=== PATIENT | female | born 1940 | race Caucasian/White ===

== ENCOUNTER 2022-07-31 07:58 | Inpatient (IN) | payer MEDICARE, BC ==
[2022-07-31] MEDS ORDERED: Dexamethasone 10 MG/ML VIAL ONE (08:44)
[2022-07-31] MEDS ORDERED: Magnesium 2 GM/50 ML BAG (IN WATER) ONE (08:45)
[2022-07-31 08:58] LABS: #Monocytes 0.8 thou/uL (0.11-0.59); #Neutrophils 3.8 thou/uL (1.40-6.50); %Basophils 0.8 % (0.0-1.0); %Eosinophils 0.6 % (0.0-10.0); %Lymphocytes 17.9 % (21.0-51.0); %Monocytes 13.6 % (0.0-10.0); %Neutrophils 67.2 % (42.0-75.0); Hemoglobin 11.6 g/dL (12.0-16.0); Mean Corpuscular HGB CONC 32.5 g/dL (32.0-36.0); Mean Corpuscular Hemoglobin 30.2 pg (27.0-31.0); Mean Corpuscular Volume 92.7 fl (78.0-98.0); Mean Platelet Volume 7.2 fL (7.4-10.4); Platelet Count 362 10x3/uL (130-400); Red Blood Cell (RBC) Count 3.85 mill/uL (4.20-5.40); White Blood Cell (WBC) Count 5.7 10x3/uL (4.8-10.8)
[2022-07-31 09:33] LABS: ALT (SGPT) 13 U/L (8-55); AST (SGOT) 19 U/L (5-34); Albumin 3.6 g/dL (3.4-4.8); Alkaline Phosphatase 101 U/L (40-110); Anion Gap 15 mmol/L (10-20); BUN (Urea Nitrogen) 14 mg/dL (9.8-20.1); Bilirubin, Total 0.2 mg/dL (0.2-1.2); Calc. Creatinine Clearance 0 mL/min (70-130); Calcium 9.1 mg/dL (7.8-10.44); Carbon Dioxide 23 mmol/L (23-31); Chloride 94 mmol/L (98-107); Estimated GFR 79; Globulin 2.9 g/dL (2.4-3.5); Glucose 83 mg/dL (83-110); Potassium 3.7 mmol/L (3.5-5.1); Protein, Total 6.5 g/dL (5.8-8.1); Sodium 128 mmol/L (136-145)
[2022-07-31] MEDS ORDERED: HumaLOG 300 UNITS/3 ML VIAL SC PRN (12:43)
[2022-07-31] MEDS ORDERED: Dextrose 5% in Water 1,000 ML IV PRN (12:43)
[2022-07-31] MEDS ORDERED: Dextrose 50% Abboject 50 ML SYRINGE SLOW IVP PRN (12:43)
[2022-07-31] MEDS ORDERED: Amlodipine 10 MG TAB PO SCH (12:45)
[2022-07-31 15:11] VITALS: BMI 39.6
[2022-07-31] MEDS ORDERED: Sodium Chloride 0.65% Nasal 44 ML BOT EA NARE PRN (21:33)
[2022-07-31] MEDS: Acetaminophen 325 MG TAB PO PRN (22:13)
[2022-07-31] MEDS: Ondansetron PF 4 MG/2 ML Vial IVP PRN (23:06)
[2022-08-01] MEDS ORDERED: Chloraseptic Spray 180 ml Bottle PO PRN (00:25)
[2022-08-01] MEDS ORDERED: Melatonin 3 MG TAB PO PRN (01:42)
[2022-08-01] MEDS: Acetaminophen 325 MG TAB PO PRN ×3 (02:17→15:15)
[2022-08-01 06:57] LABS: #Lymphocytes 1.1 thou/uL (1.20-3.40); #Monocytes 1.1 thou/uL (0.11-0.59); #Neutrophils 8.7 thou/uL (1.40-6.50); %Basophils 0.2 % (0.0-1.0); %Eosinophils 0.2 % (0.0-10.0); %Lymphocytes 10.3 % (21.0-51.0); %Monocytes 10.3 % (0.0-10.0); Hemoglobin 11.5 g/dL (12.0-16.0); Mean Corpuscular Hemoglobin 30.3 pg (27.0-31.0); Mean Corpuscular Volume 94.8 fl (78.0-98.0); Mean Platelet Volume 7.1 fL (7.4-10.4); Platelet Count 386 10x3/uL (130-400); RBC Distribution Width 14.2 % (11.5-14.5); Red Blood Cell (RBC) Count 3.78 mill/uL (4.20-5.40); White Blood Cell (WBC) Count 11.1 10x3/uL (4.8-10.8)
[2022-08-01 07:16] LABS: Anion Gap 14 mmol/L (10-20); BUN (Urea Nitrogen) 18 mg/dL (9.8-20.1); Calc. Creatinine Clearance 85 mL/min (70-130); Calcium 9.3 mg/dL (7.8-10.44); Carbon Dioxide 23 mmol/L (23-31); Chloride 96 mmol/L (98-107); Estimated GFR 81; Glucose 113 mg/dL (83-110); Potassium 3.7 mmol/L (3.5-5.1); Sodium 129 mmol/L (136-145)
[2022-08-01] MEDS ORDERED: Dexamethasone 10 MG in Sodium Chloride 0.9% 50 ML IVPB SCH (09:00)
[2022-08-01] MEDS: Ascorbic Acid 500 mg Chewable Tablet PO SCH ×2 (10:17→20:05)
[2022-08-01] MEDS: Amlodipine 10 MG TAB PO SCH (10:18)
[2022-08-01] MEDS: Floranex 1 GM Packet PO SCH (10:18)
[2022-08-01] MEDS: Potassium Chloride 10 MEQ TAB PO SCH (10:18)
[2022-08-01] MEDS: Dexamethasone 10 MG/ML VIAL SLOW IVP SCH (10:18)
[2022-08-01] MEDS: Furosemide 20 MG TAB PO SCH (10:19)
[2022-08-01] MEDS: Ondansetron PF 4 MG/2 ML Vial IVP PRN ×2 (10:24→20:05)
[2022-08-01] MEDS: DorzolamidE/Timolol 2%/0.5% Ophth Soln 10 ml Bottle EA EYE SCH ×2 (10:27→20:13)
[2022-08-01] MEDS ORDERED: Pharmacy to Dose REMDESIVIR IVPB PRN (11:35)
[2022-08-01] MEDS ORDERED: REMDESIVIR 200 MG in Sodium Chloride 0.9% 250 ML 210 ML IV SCH (12:00)
[2022-08-01] MEDS ORDERED: Calcium Carbonate 500 MG ChewTAB PO PRN (19:54)
[2022-08-01] MEDS: Latanoprost 0.005% Ophth Soln 2.5 ml Bottle EA EYE SCH (20:12)
[2022-08-02] MEDS: Furosemide 20 MG TAB PO SCH (08:53)
[2022-08-02] MEDS: Ascorbic Acid 500 mg Chewable Tablet PO SCH ×2 (08:53→21:56)
[2022-08-02] MEDS: Acetaminophen 325 MG TAB PO PRN ×2 (08:53→21:56)
[2022-08-02] MEDS: REMDESIVIR 100 MG in Sodium Chloride 0.9% 250 ML 230 ML IV SCH (08:53)
[2022-08-02] MEDS: Floranex 1 GM Packet PO SCH (08:53)
[2022-08-02] MEDS: Potassium Chloride 10 MEQ TAB PO SCH (08:54)
[2022-08-02] MEDS: DorzolamidE/Timolol 2%/0.5% Ophth Soln 10 ml Bottle EA EYE SCH ×2 (08:54→21:56)
[2022-08-02] MEDS: Amlodipine 10 MG TAB PO SCH (08:54)
[2022-08-02] MEDS: Dexamethasone 10 MG/ML VIAL SLOW IVP SCH (08:54)
[2022-08-02] MEDS: Ondansetron PF 4 MG/2 ML Vial IVP PRN (08:55)
[2022-08-02] MEDS: Latanoprost 0.005% Ophth Soln 2.5 ml Bottle EA EYE SCH (21:56)
[2022-08-03] MEDS: Acetaminophen 325 MG TAB PO PRN ×4 (05:30→21:56)
[2022-08-03 07:01] LABS: #Lymphocytes 0.9 thou/uL (1.20-3.40); #Monocytes 0.8 thou/uL (0.11-0.59); #Neutrophils 7.1 thou/uL (1.40-6.50); %Basophils 0.1 % (0.0-1.0); %Eosinophils 0.1 % (0.0-10.0); %Lymphocytes 10.6 % (21.0-51.0); %Monocytes 9.4 % (0.0-10.0); %Neutrophils 79.9 % (42.0-75.0); Hemoglobin 10.7 g/dL (12.0-16.0); Mean Corpuscular HGB CONC 33.2 g/dL (32.0-36.0); Mean Corpuscular Hemoglobin 31.4 pg (27.0-31.0); Mean Corpuscular Volume 94.6 fl (78.0-98.0); Platelet Count 352 10x3/uL (130-400); RBC Distribution Width 14.7 % (11.5-14.5); Red Blood Cell (RBC) Count 3.41 mill/uL (4.20-5.40); White Blood Cell (WBC) Count 8.9 10x3/uL (4.8-10.8)
[2022-08-03 07:18] LABS: ALT (SGPT) 13 U/L (8-55); AST (SGOT) 17 U/L (5-34); Albumin 3.5 g/dL (3.4-4.8); Alkaline Phosphatase 87 U/L (40-110); Anion Gap 11 mmol/L (10-20); BUN (Urea Nitrogen) 24 mg/dL (9.8-20.1); Bilirubin, Total 0.3 mg/dL (0.2-1.2); Calc. Creatinine Clearance 76 mL/min (70-130); Calcium 9.2 mg/dL (7.8-10.44); Carbon Dioxide 27 mmol/L (23-31); Chloride 96 mmol/L (98-107); Estimated GFR 70; Globulin 2.5 g/dL (2.4-3.5); Glucose 105 mg/dL (83-110); Potassium 3.9 mmol/L (3.5-5.1); Sodium 130 mmol/L (136-145)
[2022-08-03] MEDS: Potassium Chloride 10 MEQ TAB PO SCH (09:24)
[2022-08-03] MEDS: Dexamethasone 10 MG/ML VIAL SLOW IVP SCH (09:24)
[2022-08-03] MEDS: Furosemide 20 MG TAB PO SCH (09:24)
[2022-08-03] MEDS: Ascorbic Acid 500 mg Chewable Tablet PO SCH ×2 (09:24→21:58)
[2022-08-03] MEDS: Amlodipine 10 MG TAB PO SCH (09:24)
[2022-08-03] MEDS: REMDESIVIR 100 MG in Sodium Chloride 0.9% 250 ML 230 ML IV SCH (09:25)
[2022-08-03] MEDS: DorzolamidE/Timolol 2%/0.5% Ophth Soln 10 ml Bottle EA EYE SCH ×2 (09:25→21:56)
[2022-08-03] MEDS: Floranex 1 GM Packet PO SCH (09:25)
[2022-08-03] MEDS: Ondansetron PF 4 MG/2 ML Vial IVP PRN (16:59)
[2022-08-03] MEDS: Latanoprost 0.005% Ophth Soln 2.5 ml Bottle EA EYE SCH (21:56)
[2022-08-04 06:23] LABS: #Neutrophils 6.3 thou/uL (1.40-6.50); %Basophils 0.2 % (0.0-1.0); %Eosinophils 0.3 % (0.0-10.0); %Lymphocytes 11.9 % (21.0-51.0); %Monocytes 11.6 % (0.0-10.0); %Neutrophils 75.9 % (42.0-75.0); Hemoglobin 10.8 g/dL (12.0-16.0); Mean Corpuscular HGB CONC 32.3 g/dL (32.0-36.0); Mean Corpuscular Hemoglobin 30.5 pg (27.0-31.0); Mean Corpuscular Volume 94.4 fl (78.0-98.0); Mean Platelet Volume 7.1 fL (7.4-10.4); Platelet Count 373 10x3/uL (130-400); RBC Distribution Width 14.7 % (11.5-14.5); Red Blood Cell (RBC) Count 3.52 mill/uL (4.20-5.40); White Blood Cell (WBC) Count 8.4 10x3/uL (4.8-10.8)
[2022-08-04 06:47] LABS: ALT (SGPT) 42 U/L (8-55); AST (SGOT) 26 U/L (5-34); Albumin 3.6 g/dL (3.4-4.8); Alkaline Phosphatase 88 U/L (40-110); Anion Gap 11 mmol/L (10-20); BUN (Urea Nitrogen) 24 mg/dL (9.8-20.1); Bilirubin, Total 0.4 mg/dL (0.2-1.2); Calc. Creatinine Clearance 78 mL/min (70-130); Carbon Dioxide 25 mmol/L (23-31); Chloride 97 mmol/L (98-107); Estimated GFR 72; Globulin 2.4 g/dL (2.4-3.5); Glucose 108 mg/dL (83-110); Sodium 129 mmol/L (136-145)
[2022-08-04] MEDS: Furosemide 20 MG TAB PO SCH (09:16)
[2022-08-04] MEDS: Floranex 1 GM Packet PO SCH (09:16)
[2022-08-04] MEDS: Potassium Chloride 10 MEQ TAB PO SCH (09:16)
[2022-08-04] MEDS: Ascorbic Acid 500 mg Chewable Tablet PO SCH ×2 (09:16→21:14)
[2022-08-04] MEDS: Amlodipine 10 MG TAB PO SCH (09:16)
[2022-08-04] MEDS: REMDESIVIR 100 MG in Sodium Chloride 0.9% 250 ML 230 ML IV SCH (09:16)
[2022-08-04] MEDS: DorzolamidE/Timolol 2%/0.5% Ophth Soln 10 ml Bottle EA EYE SCH ×2 (09:21→21:14)
[2022-08-04] MEDS: Dexamethasone 10 MG/ML VIAL SLOW IVP SCH (09:21)
[2022-08-04] MEDS: Acetaminophen 325 MG TAB PO PRN ×2 (17:03→22:58)
[2022-08-04] MEDS: Latanoprost 0.005% Ophth Soln 2.5 ml Bottle EA EYE SCH (21:14)
[2022-08-05 06:26] LABS: #Neutrophils 7.9 thou/uL (1.40-6.50); %Basophils 0.1 % (0.0-1.0); %Monocytes 9.8 % (0.0-10.0); Hemoglobin 10.8 g/dL (12.0-16.0); Mean Corpuscular HGB CONC 32.6 g/dL (32.0-36.0); Mean Corpuscular Hemoglobin 30.6 pg (27.0-31.0); Mean Corpuscular Volume 93.8 fl (78.0-98.0); Mean Platelet Volume 7.4 fL (7.4-10.4); Platelet Count 362 10x3/uL (130-400); RBC Distribution Width 14.6 % (11.5-14.5); Red Blood Cell (RBC) Count 3.53 mill/uL (4.20-5.40); White Blood Cell (WBC) Count 9.9 10x3/uL (4.8-10.8)
[2022-08-05 07:32] LABS: ALT (SGPT) 38 U/L (8-55); AST (SGOT) 19 U/L (5-34); Albumin 3.5 g/dL (3.4-4.8); Alkaline Phosphatase 93 U/L (40-110); BUN (Urea Nitrogen) 25 mg/dL (9.8-20.1); Bilirubin, Total 0.4 mg/dL (0.2-1.2); Calc. Creatinine Clearance 85 mL/min (70-130); Calcium 9.2 mg/dL (7.8-10.44); Carbon Dioxide 24 mmol/L (23-31); Chloride 98 mmol/L (98-107); Estimated GFR 81; Globulin 2.4 g/dL (2.4-3.5); Glucose 109 mg/dL (83-110); Potassium 3.9 mmol/L (3.5-5.1); Protein, Total 5.9 g/dL (5.8-8.1); Sodium 131 mmol/L (136-145)
[2022-08-05 08:42] VITALS: BP 158/90; TEMP 97.4
[2022-08-05] MEDS: Floranex 1 GM Packet PO SCH (08:49)
[2022-08-05] MEDS: Amlodipine 10 MG TAB PO SCH (08:51)
[2022-08-05] MEDS: Potassium Chloride 10 MEQ TAB PO SCH (08:51)
[2022-08-05] MEDS: Dexamethasone 10 MG/ML VIAL SLOW IVP SCH (08:51)
[2022-08-05] MEDS: Furosemide 20 MG TAB PO SCH (08:51)
[2022-08-05] MEDS: DorzolamidE/Timolol 2%/0.5% Ophth Soln 10 ml Bottle EA EYE SCH (08:51)
[2022-08-05] MEDS: Ascorbic Acid 500 mg Chewable Tablet PO SCH (08:51)
[2022-08-05] MEDS: REMDESIVIR 100 MG in Sodium Chloride 0.9% 250 ML 230 ML IV SCH (09:49)
[2022-08-05 13:13] LABS: Anion Gap 13 mmol/L (10-20)
== END 2022-08-05 14:25 | disposition home health service (06) | DRG 177 ==
LOC: ERS 07:58 → ERHOLD 10:49 → OBSVTOIN 13:54 → T4-A 14:24
PROVIDERS: ADMIT Internal Medicine; ATTEND Internal Medicine
PROC: XW033E5 Introduction of Remdesivir Anti-infective into Peripheral Vein, Percutaneous Approach, New Technology Group 5 (ICD-10-PCS; principal; 2022-08-01)
PROC: 8E0ZXY6 Isolation (ICD-10-PCS; 2022-08-01)
DX: U07.1 COVID-19 (principal); J96.01 Acute respiratory failure with hypoxia; E87.1 Hypo-osmolality and hyponatremia; E11.9 Type 2 diabetes mellitus without complications; E78.5 Hyperlipidemia, unspecified; I10 Essential (primary) hypertension; Z86.73 Personal history of transient ischemic attack (TIA), and cerebral infarction without residual deficits; Z90.49 Acquired absence of other specified parts of digestive tract; Z79.899 Other long term (current) drug therapy
CPT/HCPCS: 36415; 36416; 71045; 80048; 80053; 83880; 84484; 85025; 85379; 93005; 96365; 96375; J0248; J1100; J1650; J1815; J2405; J3475; J7050; U0003; U0005

== ENCOUNTER 2022-10-05 15:17 | Emergency (ER) | payer MEDICARE, BC ==
[2022-10-05 16:01] LABS: Hemoglobin 12.2 g/dL (12.0-16.0); Mean Corpuscular HGB CONC 32.2 g/dL (32.0-36.0); Mean Corpuscular Hemoglobin 31.2 pg (27.0-31.0); Mean Corpuscular Volume 96.9 fl (78.0-98.0); Mean Platelet Volume 8.3 fL (7.4-10.4); Platelet Count 282 10x3/uL (130-400); RBC Distribution Width 13.3 % (11.5-14.5); Red Blood Cell (RBC) Count 3.92 mill/uL (4.20-5.40); White Blood Cell (WBC) Count 5.1 10x3/uL (4.8-10.8)
[2022-10-05 16:27] LABS: ALT (SGPT) 11 U/L (8-55); AST (SGOT) 17 U/L (5-34); Alkaline Phosphatase 88 U/L (40-110); Anion Gap 15 mmol/L (10-20); BUN (Urea Nitrogen) 16 mg/dL (9.8-20.1); Bilirubin, Total 0.2 mg/dL (0.2-1.2); Calc. Creatinine Clearance 0 mL/min (70-130); Calcium 10.1 mg/dL (7.8-10.44); Carbon Dioxide 21 mmol/L (23-31); Chloride 102 mmol/L (98-107); Estimated GFR 48; Glucose 93 mg/dL (83-110); Potassium 3.4 mmol/L (3.5-5.1); Sodium 135 mmol/L (136-145)
[2022-10-05 16:37] LABS: Band 3 % (5-11); Eosinophils 3 % (0-10); Lymphocytes 15 % (21-51); MDiff Complete? YES; Monocytes 13 % (0-10); Neutrophil 65 % (42-75); Platelet Morphology Comment Appears Adequate; RBC Morphology Normal
== END 2022-10-05 17:07 | disposition home or self-care (01) ==
LOC: ERS 15:17
DX: T36.8X1A Poisoning by other systemic antibiotics, accidental (unintentional), initial encounter (principal); E11.9 Type 2 diabetes mellitus without complications; E78.5 Hyperlipidemia, unspecified; I10 Essential (primary) hypertension
CPT/HCPCS: 36415; 80053; 85025; 99284

== ENCOUNTER 2023-02-01 10:41 | Observation (INO) | payer MEDICARE, BC ==
[2023-02-01] MEDS ORDERED: Ondansetron PF 4 MG/2 ML Vial ONE (11:21)
[2023-02-01 11:55] LABS: #Monocytes 0.9 thou/uL (0.11-0.59); #Neutrophils 5.5 thou/uL (1.40-6.50); %Basophils 0.4 % (0.0-1.0); %Eosinophils 0.6 % (0.0-10.0); %Lymphocytes 6.5 % (21.0-51.0); %Monocytes 12.3 % (0.0-10.0); %Neutrophils 79.8 % (42.0-75.0); Hematocrit 38.6 % (36.0-47.0); Hemoglobin 12.3 g/dL (12.0-16.0); Mean Corpuscular HGB CONC 31.9 g/dL (32.0-36.0); Mean Corpuscular Hemoglobin 31.5 pg (27.0-31.0); Mean Platelet Volume 10.7 fL (7.4-10.4); Platelet Count 191 10x3/uL (130-400); RBC Distribution Width 15.9 % (11.5-14.5); White Blood Cell (WBC) Count 6.9 10x3/uL (4.8-10.8)
[2023-02-01 12:53] LABS: SARS-CoV-2 NAA Rapid Test DETECTED (NotDetected)
[2023-02-01 13:24] LABS: Troponin I 0.011 ng/mL (< 0.028)
[2023-02-01 13:45] LABS: Calcium 9.5 mg/dL (7.8-10.44); Chloride 95 mmol/L (98-107); Potassium 4.6 mmol/L (3.5-5.1); Sodium 123 mmol/L (136-145)
[2023-02-01 13:46] LABS: Globulin 3.9 g/dL (2.4-3.5); Glucose 90 mg/dL (83-110); Protein, Total 7.9 g/dL (5.8-8.1)
[2023-02-01 13:47] LABS: Anion Gap 16 mmol/L (10-20); Carbon Dioxide 17 mmol/L (23-31)
[2023-02-01 13:48] LABS: Bilirubin, Total 0.2 mg/dL (0.2-1.2)
[2023-02-01 13:49] LABS: Alkaline Phosphatase 115 U/L (40-110); Calc. Creatinine Clearance 0 mL/min (70-130); Estimated GFR 82
[2023-02-01 13:50] LABS: BUN (Urea Nitrogen) 7 mg/dL (9.8-20.1)
[2023-02-01 13:51] LABS: AST (SGOT) 38 U/L (5-34)
[2023-02-01 13:52] LABS: ALT (SGPT) 18 U/L (8-55); Lipase 17 U/L (8-78)
[2023-02-01] MEDS ORDERED: Benzonatate 100 MG CAP PO PRN (15:08)
[2023-02-01] MEDS ORDERED: Albuterol 200 PUFF (6.7GM INHALER) INH PRN (15:08)
[2023-02-01] MEDS ORDERED: Acetaminophen 650 MG Suppository PR PRN (15:08)
[2023-02-01] MEDS ORDERED: Acetaminophen 325 MG TAB PO PRN (15:08)
[2023-02-01] MEDS ORDERED: HumaLOG 300 UNITS/3 ML VIAL SC PRN (15:13)
[2023-02-01] MEDS ORDERED: Glucagon 1 MG/ML KIT IM PRN (15:13)
[2023-02-01] MEDS ORDERED: Dextrose 5% in Water 1,000 ML IV PRN (15:13)
[2023-02-01] MEDS ORDERED: Dextrose 50% Abboject 50 ML SYRINGE SLOW IVP PRN (15:13)
[2023-02-01] MEDS ORDERED: Loperamide HCl 2 MG CAP PO PRN (15:14)
[2023-02-01] MEDS ORDERED: Ondansetron PF 4 MG/2 ML Vial IVP PRN (15:14)
[2023-02-01] MEDS ORDERED: Guaifenesin DM 100-10/5 ML UDCUP PO PRN (15:14)
[2023-02-01 15:34] LABS: Magnesium 1.9 mg/dL (1.6-2.6)
[2023-02-01] MEDS ORDERED: Dexamethasone 4 MG TAB PO SCH (15:45)
[2023-02-01] MEDS ORDERED: Loratadine 10 MG TAB PO PRN (15:47)
[2023-02-01] MEDS: Lactated Ringer's 1,000 ML IV SCH (16:34)
[2023-02-01 17:35] LABS: Legionella Urinary Ag Negative (Negative); Strep pneumo Urine Ag NEGATIVE (NEGATIVE); Troponin I Less than 0.010 ng/mL (< 0.028)
[2023-02-01] MEDS: DorzolamidE/Timolol 2%/0.5% Ophth Soln 10 ml Bottle EA EYE SCH (20:53)
[2023-02-01] MEDS ORDERED: Latanoprost 0.005% Ophth Soln 2.5 ml Bottle EA EYE SCH (21:00)
[2023-02-02] MEDS: Lactated Ringer's 1,000 ML IV SCH ×2 (01:51→13:40)
[2023-02-02 06:53] LABS: Hemoglobin A1c 5.4 % (4.0-6.0)
[2023-02-02 07:02] LABS: ALT (SGPT) 13 U/L (8-55); AST (SGOT) 15 U/L (5-34); Albumin 3.7 g/dL (3.4-4.8); Alkaline Phosphatase 101 U/L (40-110); Anion Gap 13 mmol/L (10-20); BUN (Urea Nitrogen) 8 mg/dL (9.8-20.1); Bilirubin, Total 0.2 mg/dL (0.2-1.2); Calc. Creatinine Clearance 0 mL/min (70-130); Calcium 9.3 mg/dL (7.8-10.44); Carbon Dioxide 21 mmol/L (23-31); Chloride 99 mmol/L (98-107); Estimated GFR 83; Globulin 2.9 g/dL (2.4-3.5); Glucose 130 mg/dL (83-110); Potassium 3.9 mmol/L (3.5-5.1); Protein, Total 6.6 g/dL (5.8-8.1); Sodium 129 mmol/L (136-145)
[2023-02-02 07:08] LABS: Lactic Acid 0.7 mmol/L (0.5-2.2)
[2023-02-02] MEDS ORDERED: Dexamethasone 4 MG TAB PO SCH (08:00)
[2023-02-02] MEDS ORDERED: Multivit, Therapeutic 1 TAB PO SCH (09:00)
[2023-02-02] MEDS ORDERED: Floranex 1 GM Packet PO SCH (09:00)
[2023-02-02] MEDS ORDERED: Amlodipine 10 MG TAB PO SCH (09:00)
[2023-02-02] MEDS ORDERED: Cholecalciferol 1,000 UNITS (25 MCG) TAB PO SCH (09:00)
[2023-02-02] MEDS: DorzolamidE/Timolol 2%/0.5% Ophth Soln 10 ml Bottle EA EYE SCH (09:42)
[2023-02-02 13:12] VITALS: BP 135/78; TEMP 98.5
[2023-02-03] MEDS ORDERED: Semaglutide [Rybelsus] 3 MG Tab PO SCH (09:00)
[2023-02-03] MEDS ORDERED: Non-Formulary Item 1 EACH (Semaglutide [Rybelsus] 3 MG Tablet) PO SCH (09:00)
[2023-02-03] MEDS ORDERED: Potassium Chloride 10 MEQ TAB PO SCH (09:00)
== END 2023-02-02 16:11 | disposition home or self-care (01) ==
LOC: ERS 10:41 → T4-B 14:41
PROVIDERS: ADMIT Internal Medicine Geriatric Medicine; ATTEND Internal Medicine Geriatric Medicine
DX: U07.1 COVID-19 (principal); E87.1 Hypo-osmolality and hyponatremia; E11.9 Type 2 diabetes mellitus without complications; I10 Essential (primary) hypertension; R07.9 Chest pain, unspecified; E87.21 Acute metabolic acidosis; E78.5 Hyperlipidemia, unspecified; Z79.899 Other long term (current) drug therapy; Z88.1 Allergy status to other antibiotic agents; Z91.048 Other nonmedicinal substance allergy status; Z86.73 Personal history of transient ischemic attack (TIA), and cerebral infarction without residual deficits
CPT/HCPCS: 0240U; 71045; 80053 ×2; 82728; 82962 ×2; 83036; 83605 ×2; 83615; 83690; 83735; 84145; 84484 ×2; 85025; 85379 ×2; 86140; 87449; 87899; 93005; 96361; 96374; 97535; 99285; 36415; 36416; J1650; J2405; J7120; J8540

== ENCOUNTER 2025-02-25 10:45 | Inpatient (IN) | payer MEDICARE, BC ==
[2025-02-25 14:15] LABS: Bacteria/HPF 1+ HPF (None Seen); CAUTI Indications for Culture < 2yrs of age; RBC/HPF 0-3 HPF (0-3)
[2025-02-25 14:16] LABS: Urine Culture Reflex Yes Yes
[2025-02-25] MEDS ORDERED: cefTRIAXone (ROCEPHIN) 1 GM VIAL ONE (14:38)
[2025-02-25 15:18] LABS: #Basophils 0.05 10x3/uL (0.0-0.2); #Eosinophils 0.12 10x3/uL (0.0-0.7); #Monocytes 0.54 10x3/uL (0.11-0.59); #Neutrophils 5.65 10x3/uL (1.40-6.50); %Basophils 0.7 % (0.0-1.0); %Eosinophils 1.6 % (0.0-10.0); %Lymphocytes 13.0 % (21.0-51.0); %Monocytes 7.4 % (0.0-10.0); %Neutrophils 77.0 % (42.0-75.0); Hematocrit 49.4 % (36.0-47.0); Hemoglobin 15.7 g/dL (12.0-16.0); Mean Corpuscular Hemoglobin 28.0 pg (27.0-31.0); Mean Corpuscular Volume 88.2 fL (78.0-98.0); Platelet Count 305 10x3/uL (130-400); Red Blood Cell (RBC) Count 5.60 mill/uL (4.20-5.40); White Blood Cell (WBC) Count 7.33 10x3/uL (4.8-10.8)
[2025-02-25 17:20] VITALS: BMI 33.0
[2025-02-25] MEDS ORDERED: Melatonin 3 MG TAB PO PRN (18:50)
[2025-02-25] MEDS ORDERED: Senokot S 8.6-50 MG TAB PO PRN (18:50)
[2025-02-25] MEDS ORDERED: Acetaminophen 325 MG TAB PO PRN (18:50)
[2025-02-25] MEDS ORDERED: Ondansetron PF 4 MG/2 ML Vial IVP PRN (18:50)
[2025-02-25 19:13] LABS: ALT (SGPT) 10 U/L (Less than 34); AST (SGOT) 20 U/L (11-34); Albumin 3.7 g/dL (3.1-4.5); Alkaline Phosphatase 118 U/L (40-110); Anion Gap 17 mmol/L (10-20); BUN (Urea Nitrogen) 7 mg/dL (9.8-20.1); Bilirubin, Total 0.3 mg/dL (0.3-1.2); Calc. Creatinine Clearance 80 mL/min (70-130); Calcium 9.6 mg/dL (7.8-10.44); Carbon Dioxide 19 mmol/L (23-31); Chloride 106 mmol/L (98-107); Globulin 3.8 g/dL (2.4-3.5); Glucose 206 mg/dL (83-110); Potassium 3.4 mmol/L (3.5-5.1); Sodium 139 mmol/L (136-145)
[2025-02-25] MEDS ORDERED: Glucagon 1 MG/ML KIT IM PRN (20:38)
[2025-02-25] MEDS ORDERED: Dextrose 50% Abboject 50 ML SYRINGE SLOW IVP PRN (20:38)
[2025-02-25] MEDS: DorzolamidE/Timolol 2%/0.5% Ophth Soln 10 ml Bottle EA EYE SCH (20:39)
[2025-02-25] MEDS: Azithromycin 500 MG in Sodium Chloride 0.9% 250 ML 250 ML IVPB SCH (20:39)
[2025-02-25] MEDS: Ezetimibe 10 MG TAB PO SCH (20:40)
[2025-02-25] MEDS: Famotidine 20 MG TAB PO SCH (20:40)
[2025-02-25 20:53] LABS: Influenza A by NAA Not Detected (NotDetected); Influenza B by NAA Not Detected (NotDetected); RSV by NAA Not Detected (NotDetected); SARS-CoV-2 NAA Rapid Test Not Detected (NotDetected)
[2025-02-25] MEDS: diphenhydrAMINE 25 MG CAP PO SCH (22:22)
[2025-02-26 06:22] LABS: #Basophils 0.04 10x3/uL (0.0-0.2); #Eosinophils 0.03 10x3/uL (0.0-0.7); #Monocytes 0.44 10x3/uL (0.11-0.59); #Neutrophils 8.36 10x3/uL (1.40-6.50); %Basophils 0.4 % (0.0-1.0); %Eosinophils 0.3 % (0.0-10.0); %Lymphocytes 7.0 % (21.0-51.0); %Monocytes 4.6 % (0.0-10.0); %Neutrophils 87.2 % (42.0-75.0); Hematocrit 48.8 % (36.0-47.0); Hemoglobin 16.2 g/dL (12.0-16.0); Mean Corpuscular Hemoglobin 28.5 pg (27.0-31.0); Mean Corpuscular Volume 85.9 fL (78.0-98.0); Platelet Count 303 10x3/uL (130-400); Red Blood Cell (RBC) Count 5.68 mill/uL (4.20-5.40); White Blood Cell (WBC) Count 9.59 10x3/uL (4.8-10.8)
[2025-02-26 06:31] LABS: Anion Gap 15 mmol/L (10-20); BUN (Urea Nitrogen) 7 mg/dL (9.8-20.1); Calc. Creatinine Clearance 82 mL/min (70-130); Calcium 9.8 mg/dL (7.8-10.44); Carbon Dioxide 23 mmol/L (23-31); Chloride 104 mmol/L (98-107); Glucose 124 mg/dL (83-110); Potassium 4.3 mmol/L (3.5-5.1); Sodium 138 mmol/L (136-145)
[2025-02-26] MEDS: Ferrous Sulfate 325 MG TAB PO SCH (08:27)
[2025-02-26] MEDS ORDERED: Non-Formulary Item 1 EACH (Ferrous Sulfate [Ferosul] 325 MG Tablet) PO SCH (09:00)
[2025-02-26] MEDS: Multivit, Therapeutic 1 TAB PO SCH (09:01)
[2025-02-26] MEDS: Cholecalciferol 1,000 UNITS (25 MCG) TAB PO SCH (09:01)
[2025-02-26] MEDS: Magnesium Oxide 400 MG TAB PO SCH (09:02)
[2025-02-26] MEDS: Furosemide 20 MG TAB PO SCH (09:02)
[2025-02-26] MEDS: cefTRIAXone\\ROCEPHIN 1 GM in Sodium Chloride 0.9% 100 ML IVPB SCH ×2 (14:21→20:16)
[2025-02-26] MEDS: Azithromycin 250 MG TAB PO SCH (20:18)
[2025-02-27 06:02] LABS: #Basophils 0.06 10x3/uL (0.0-0.2); #Eosinophils 0.26 10x3/uL (0.0-0.7); #Monocytes 0.86 10x3/uL (0.11-0.59); #Neutrophils 5.43 10x3/uL (1.40-6.50); %Basophils 0.7 % (0.0-1.0); %Eosinophils 3.2 % (0.0-10.0); %Lymphocytes 17.4 % (21.0-51.0); %Monocytes 10.7 % (0.0-10.0); %Neutrophils 67.6 % (42.0-75.0); Hematocrit 44.4 % (36.0-47.0); Hemoglobin 14.3 g/dL (12.0-16.0); Mean Corpuscular Hemoglobin 28.1 pg (27.0-31.0); Mean Corpuscular Volume 87.4 fL (78.0-98.0); Platelet Count 318 10x3/uL (130-400); Red Blood Cell (RBC) Count 5.08 mill/uL (4.20-5.40); White Blood Cell (WBC) Count 8.04 10x3/uL (4.8-10.8)
[2025-02-27 06:30] LABS: Anion Gap 13 mmol/L (10-20); BUN (Urea Nitrogen) 13 mg/dL (9.8-20.1); Calc. Creatinine Clearance 62 mL/min (70-130); Calcium 9.5 mg/dL (7.8-10.44); Carbon Dioxide 22 mmol/L (23-31); Chloride 106 mmol/L (98-107); Glucose 110 mg/dL (83-110); Potassium 3.4 mmol/L (3.5-5.1); Sodium 138 mmol/L (136-145)
[2025-02-27] MEDS ORDERED: hydrALAZINE 20 MG/ML VIAL SLOW IVP PRN (10:37)
[2025-02-27] MEDS ORDERED: Iopamidol 370 76% 100 ML VIAL ONE (11:58)
[2025-02-27 12:27] LABS: Cardiac Risk 3.5 (Less than 4.5); Cholesterol 197.0 mg/dl (< 200 Desired); HDL Cholesterol 56.0 mg/dL (>60 Neg Risk); LDL Cholesterol, Calculated 112.0 mg/dL; Triglycerides 146.0 mg/dL (Less than 150)
[2025-02-27] MEDS: cefTRIAXone\\ROCEPHIN 2 GM in Sodium Chloride 0.9% 100 ML IVPB SCH ×2 (15:27→16:08)
[2025-02-27] MEDS: Aspirin 81 mg Enteric Coated Tablet PO SCH (16:08)
[2025-02-27] MEDS: diphenhydrAMINE 25 MG CAP PO SCH (22:00)
[2025-02-28 04:19] LABS: #Basophils 0.06 10x3/uL (0.0-0.2); #Eosinophils 0.22 10x3/uL (0.0-0.7); #Monocytes 0.98 10x3/uL (0.11-0.59); #Neutrophils 6.62 10x3/uL (1.40-6.50); %Basophils 0.7 % (0.0-1.0); %Eosinophils 2.4 % (0.0-10.0); %Lymphocytes 12.0 % (21.0-51.0); %Monocytes 10.9 % (0.0-10.0); %Neutrophils 73.6 % (42.0-75.0); Hematocrit 45.8 % (36.0-47.0); Hemoglobin 14.4 g/dL (12.0-16.0); Mean Corpuscular Hemoglobin 27.6 pg (27.0-31.0); Mean Corpuscular Volume 87.7 fL (78.0-98.0); Platelet Count 316 10x3/uL (130-400); Red Blood Cell (RBC) Count 5.22 mill/uL (4.20-5.40); White Blood Cell (WBC) Count 9.00 10x3/uL (4.8-10.8)
[2025-02-28 04:52] LABS: Anion Gap 11 mmol/L (10-20); BUN (Urea Nitrogen) 10 mg/dL (9.8-20.1); Calc. Creatinine Clearance 60 mL/min (70-130); Calcium 9.8 mg/dL (7.8-10.44); Carbon Dioxide 22 mmol/L (23-31); Cardiac Risk 3.7 (Less than 4.5); Chloride 105 mmol/L (98-107); Cholesterol 191 mg/dl (< 200 Desired); Glucose 119 mg/dL (83-110); HDL Cholesterol 51 mg/dL (>60 Neg Risk); LDL Cholesterol, Calculated 111 mg/dL; Potassium 3.7 mmol/L (3.5-5.1); Sodium 134 mmol/L (136-145); Triglycerides 145 mg/dL (Less than 150)
[2025-02-28] MEDS ORDERED: hydrALAZINE 20 MG/ML VIAL SLOW IVP PRN (12:32)
[2025-02-28 12:33] LABS: Anion Gap 13 mmol/L (10-20); BUN (Urea Nitrogen) 10 mg/dL (9.8-20.1); Calc. Creatinine Clearance 70 mL/min (70-130); Calcium 9.8 mg/dL (7.8-10.44); Carbon Dioxide 19 mmol/L (23-31); Chloride 102 mmol/L (98-107); Glucose 112 mg/dL (83-110); Potassium 4.2 mmol/L (3.5-5.1); Sodium 130 mmol/L (136-145)
[2025-02-28] MEDS ORDERED: Multivit, Therapeutic 1 TAB PO SCH (21:00)
[2025-02-28] MEDS: Thiamine 100 MG TAB PO SCH (21:10)
[2025-02-28] MEDS: Folic Acid 1 MG TAB PO SCH (21:10)
[2025-02-28] MEDS: Enoxaparin 40 MG (0.4 mL) SYRINGE SC SCH (21:11)
[2025-03-01 04:52] LABS: Anion Gap 11 mmol/L (10-20); BUN (Urea Nitrogen) 16 mg/dL (9.8-20.1); Calc. Creatinine Clearance 57 mL/min (70-130); Calcium 9.4 mg/dL (7.8-10.44); Carbon Dioxide 25 mmol/L (23-31); Chloride 101 mmol/L (98-107); Glucose 106 mg/dL (83-110); Magnesium 2.1 mg/dL (1.6-2.6); Potassium 4.0 mmol/L (3.5-5.1); Sodium 133 mmol/L (136-145)
[2025-03-01 05:33] LABS: #Basophils 0.08 10x3/uL (0.0-0.2); #Eosinophils 0.37 10x3/uL (0.0-0.7); #Monocytes 0.89 10x3/uL (0.11-0.59); #Neutrophils 6.10 10x3/uL (1.40-6.50); %Basophils 0.9 % (0.0-1.0); %Eosinophils 4.1 % (0.0-10.0); %Lymphocytes 17.0 % (21.0-51.0); %Monocytes 9.9 % (0.0-10.0); %Neutrophils 67.7 % (42.0-75.0); Hematocrit 41.7 % (36.0-47.0); Hemoglobin 13.3 g/dL (12.0-16.0); Mean Corpuscular Hemoglobin 28.1 pg (27.0-31.0); Mean Corpuscular Volume 88.0 fL (78.0-98.0); Platelet Count 316 10x3/uL (130-400); Red Blood Cell (RBC) Count 4.74 mill/uL (4.20-5.40); White Blood Cell (WBC) Count 9.01 10x3/uL (4.8-10.8)
[2025-03-01] MEDS: Aspirin 81 mg Enteric Coated Tablet PO SCH (10:35)
[2025-03-01] MEDS: Cyanocobalamin 1000 MCG/ML VIAL IM SCH (10:36)
[2025-03-01] MEDS ORDERED: hydrALAZINE 20 MG/ML VIAL SLOW IVP PRN (11:13)
[2025-03-01] MEDS: Atenolol 25 MG TAB PO SCH (12:53)
[2025-03-01] MEDS: Multivit, Therapeutic 1 TAB PO SCH (21:19)
[2025-03-02 03:44] VITALS: TEMP 98.3
[2025-03-02] MEDS: Atenolol 25 MG TAB PO SCH (08:30)
[2025-03-02 13:49] VITALS: BP 152/76
== END 2025-03-02 15:54 | DRG 64 ==
LOC: ERS 10:45 → T4-A 15:46 → OBSVTOIN 02-26 13:23 → PCU 02-27 11:02
PROVIDERS: ADMIT Internal Medicine; ATTEND Internal Medicine
DX: I63.9 Cerebral infarction, unspecified (principal); G93.41 Metabolic encephalopathy; J18.9 Pneumonia, unspecified organism; I69.954 Hemiplegia and hemiparesis following unspecified cerebrovascular disease affecting left non-dominant side; N39.0 Urinary tract infection, site not specified; Z96.652 Presence of left artificial knee joint; R29.710 NIHSS score 10; E53.8 Deficiency of other specified B group vitamins; E78.5 Hyperlipidemia, unspecified; F03.90 Unspecified dementia, unspecified severity, without behavioral disturbance, psychotic disturbance, mood disturbance, and anxiety; Z90.49 Acquired absence of other specified parts of digestive tract; Z98.890 Other specified postprocedural states; Z91.048 Other nonmedicinal substance allergy status; Z88.8 Allergy status to other drugs, medicaments and biological substances; Z98.49 Cataract extraction status, unspecified eye; E87.6 Hypokalemia; E11.22 Type 2 diabetes mellitus with diabetic chronic kidney disease; N18.2 Chronic kidney disease, stage 2 (mild); I12.9 Hypertensive chronic kidney disease with stage 1 through stage 4 chronic kidney disease, or unspecified chronic kidney disease; Z79.899 Other long term (current) drug therapy
CPT/HCPCS: 36415; 36416; 51701; 70250; 70450; 70496; 70498; 70551; 71045; 72170; 74018; 80048; 80053; 80061; 81001; 82607; 83036; 83735; 83880; 84100; 84443; 85025; 87040; 87077; 87086; 87186; 87637; 93005; 93306; 96361; 96365; 96375; G0378; J0456; J0696; J1650; J3420; J7050; Q9967